=== PATIENT | female | born 2000 | race Two or more races ===

== ENCOUNTER 2022-07-30 14:22 | Emergency (ER) | payer MEDICAID, OTHER ==
[~2022-07-30] VITALS: Ht 165.1 cm; Wt 128.9 kg
[2022-07-30 15:14] VITALS: BP 112/76
[2022-07-30] MEDS ORDERED: CEPH-510 PO (15:16)
== END 2022-07-30 15:23 | disposition home or self-care (01) ==
LOC: ER 14:22
DX: S21.03 Puncture wound without foreign body of breast (principal); Z88.8 Allergy status to other drugs, medicaments and biological substances; W34.09XD Accidental discharge from other specified firearms, subsequent encounter